=== PATIENT | female | born 1990 | race Caucasian/White ===

== ENCOUNTER 2017-01-30 22:08 | Emergency (ER) | payer OTHER ==
[~2017-01-30] VITALS: Ht 154.9 cm; Wt 71.7 kg
[2017-01-30 22:24] VITALS: BP 128/64
--- NOTE | 2017-01-30 22:36 | NUR ---
Patient to US via wheelchair per tech.
--- NOTE | 2017-01-30 22:48 | NUR ---
Patient back from [place] via wheelchair per tech.
--- NOTE | 2017-01-30 23:30 | NUR ---
Patient to bed 05.
--- NOTE | 2017-01-30 23:30 | NUR ---
PATIENT PRESENTS TO ED WITH PELVIC PAIN X 1 WEEK . PT STATES SHE IS X 9 WEEKS WITH RIGHT FLANK PAIN WELL 6/10 PAIN . PT SKIN IS PINK/WARM/DRY; AAOX4 WITH EVEN AND STEADY GAIT; LUNGS CLEAR BL; HR EVEN AND REGULAR; PT DENIES ANY FEVER, CP, SOB, OR COUGH AT THIS TIME; PATIENT STATES PAIN OF 6/10 AT THIS TIME; VSS; PATIENT POSITIONED FOR COMFORT; HOB ELEVATED; BEDRAILS UP X2; BED DOWN. ER MD MADE AWARE OF PT STATUS. PT IS 52P3 HX KIDNEY INFECTION AND RUPTURE CYST
--- NOTE | 2017-01-30 23:56 | NUR ---
Dr. Cordero evaluating patient at bedside.
[2017-01-31 00:16] VITALS: BP 122/68
--- NOTE | 2017-01-31 00:16 | NUR ---
Patient discharged with v/s stable. Written and verbal after care instructions given and explained. Patient alert, oriented and verbalized understanding of instructions. Ambulatory with steady gait. All questions addressed prior to discharge. ID band removed. Patient advised to follow up with PMD. Rx of TYLENOL 500MG TAB given. Patient educated on indication of medication including possible reaction and side effects. Opportunity to ask questions provided and answered.
== END 2017-01-31 00:16 | disposition home or self-care (01) ==
LOC: MED 22:08
DX: O20.0 Threatened abortion (principal); Z3A.09 9 weeks gestation of pregnancy
CPT/HCPCS: 76801; 81002; 99284; Q0092

== ENCOUNTER 2017-07-23 09:00 | Observation (INO) | payer OTHER ==
[~2017-07-23] VITALS: Ht 154.9 cm; Wt 88.0 kg
[2017-07-23] MEDS ORDERED: OSC500 PO (09:23)
[2017-07-23] MEDS ORDERED: PREN-380 PO (09:23)
[2017-07-23] MEDS ORDERED: VITA1TAB44 PO (09:23)
[2017-07-23 09:25] VITALS: BP 107/70
[2017-07-23] MEDS ORDERED: TERBUTALINE 1 MG/ML VIAL SUBQ SCH (10:30)
[2017-07-23 10:46] LABS: BILIRUBIN,URINE NEGATIVE (NEGATIVE); BLOOD, URINE NEGATIVE (NEGATIVE); COLOR,URINE YELLOW (YELLOW); PH,URINE 7.5 (5.0-9.0); UGLUCOSE NEGATIVE (NEGATIVE)
[2017-07-23 10:50] LABS: APPEARANCE,URINE SLIGHTLY HAZY (CLEAR); NITRITE, URINE POSITIVE (NEGATIVE)
[2017-07-23] MEDS ORDERED: TERBUTALINE 1 MG/ML VIAL SUBQ ONE (10:53)
[2017-07-23 10:55] LABS: LEUKOCYTE ESTERASE ,URINE TRACE (NEGATIVE)
[2017-07-23 10:58] LABS: RBC,URINE 0-5 (RARE) /HPF (0-5); WBC,URINE 0-5 (RARE) /HPF (0-5)
[2017-07-23 11:46] LABS: BARBITURATE, URINE NEG. ng/ml (NEG <=200); BENZODIAZEPINE, URINE NEG. ng/mL (NEG <=200); CANNABINOID, URINE NEG. ng/mL (NEG <=50); COCAINE, URINE NEG. ng/mL (NEG <=300); OPIATE, URINE NEG. ng/mL (NEG <=2000); PHENCYCLIDINE SCREEN,URINE NEG. ng/mL (NEG <=25)
== END 2017-07-23 13:00 | disposition home or self-care (01) ==
LOC: MLD 09:00
PROVIDERS: ADMIT Obstetrics & Gynecology; ATTEND Obstetrics & Gynecology
DX: O42.913 Preterm premature rupture of membranes, unspecified as to length of time between rupture and onset of labor, third trimester (principal); Z3A.34 34 weeks gestation of pregnancy
CPT/HCPCS: 76805; 80305; 81001; 96372; G0378; J3105; Q0092

== ENCOUNTER 2017-08-24 04:29 | Inpatient (IN) | payer OTHER ==
[~2017-08-24] VITALS: Ht 156.2 cm; Wt 93.4 kg
[~2017-08-24 04:29] MED LIST: OSC500 PO; PREN-380 PO; VITA1TAB44 PO
[2017-08-24 07:03] LABS: BASOPHILS % (AUTO) 0.3 % (0.0-2.0); EOSINOPHILS # (AUTO) 0.2 K/uL (0-0.4); EOSINOPHILS % (AUTO) 1.3 % (0.0-4.0); HEMATOCRIT 37.9 % (36-48); HEMOGLOBIN 13.1 g/dL (12.0-16.0); LYMPHOCYTES % (AUTO) 15.2 % (20.5-51.1); MEAN CORPUSCULAR HEMOGLOBIN 30 pg (27-31); MEAN CORPUSCULAR HGB CONC 35 g/dL (33-37); MEAN CORPUSCULAR VOLUME 86 fL (80-94); MONOCYTES # (AUTO) 0.8 K/uL (0.8-1.0); MONOCYTES % (AUTO) 6.3 % (1.7-9.3); NEUTROPHILS # (AUTO) 10.4 K/uL (1.8-7.7); NEUTROPHILS % (AUTO) 76.9 % (42.2-75.2); PLATELET COUNT (AUTO) 159 K/uL (140-450); RED CELL DISTRIBUTION WIDTH 12.3 % (11.6-13.7); WHITE BLOOD COUNT (AUTO) 13.4 K/uL (4.8-10.8)
[2017-08-24 07:21] VITALS: BP 115/75
[2017-08-24] MEDS ORDERED: BUPIVACAINE-MPF 0.75% 10 ML VIAL INJ ONE (07:30)
[2017-08-24] MEDS ORDERED: ONDANSETRON 4 MG/2 ML VIAL IVP ONE (07:30)
[2017-08-24] MEDS ORDERED: OXYTOCIN 10 UNITS/ML VIAL ONE ×2 (07:33→15:51)
[2017-08-24] MEDS ORDERED: ceFAZolin 1,000 MG VIAL ONE (07:44)
[2017-08-24] MEDS ORDERED: MORPHINE PRES FREE 10 MG/10 ML AMP IV ONE (07:45)
[2017-08-24] MEDS ORDERED: MIDAZOLAM 2 MG/2 ML VIAL ONE (07:45)
[2017-08-24 07:50] LABS: ALBUMIN 2.6 g/dL (3.4-5.0); ANION GAP 11.7 (8-16); CARBON DIOXIDE 24.2 mmol/L (21-32); CREATININE 0.5 mg/dL (0.6-1.3); POTASSIUM 3.9 mmol/L (3.5-5.1); TOTAL BILIRUBIN 0.3 mg/dL (0.0-1.0)
[2017-08-24 07:57] LABS: APPEARANCE,URINE CLEAR (CLEAR); BILIRUBIN,URINE NEGATIVE (NEGATIVE); BLOOD, URINE NEGATIVE (NEGATIVE); COLOR,URINE YELLOW (YELLOW); LEUKOCYTE ESTERASE ,URINE NEGATIVE (NEGATIVE); NITRITE, URINE NEGATIVE (NEGATIVE); PH,URINE 6.5 (5.0-9.0); UGLUCOSE NEGATIVE (NEGATIVE)
[2017-08-24 07:59] LABS: BARBITURATE, URINE NEG. ng/ml (NEG <=200); BENZODIAZEPINE, URINE NEG. ng/mL (NEG <=200); CANNABINOID, URINE NEG. ng/mL (NEG <=50); COCAINE, URINE NEG. ng/mL (NEG <=300); OPIATE, URINE NEG. ng/mL (NEG <=2000); PHENCYCLIDINE SCREEN,URINE NEG. ng/mL (NEG <=25)
[2017-08-24] MEDS ORDERED: NALBUPHINE 10 MG/ML AMP IVP PRN (08:05)
[2017-08-24] MEDS ORDERED: diphenhydrAMINE 50 MG/ML VIAL IVP PRN ×2 (08:05)
[2017-08-24] MEDS ORDERED: NALOXONE 0.4 MG/ML VIAL IVP PRN ×3 (08:05)
[2017-08-24] MEDS ORDERED: HYDROmorphone 1 MG/ML AMP IVP PRN (08:05)
[2017-08-24] MEDS ORDERED: ONDANSETRON 4 MG/2 ML VIAL IVP PRN ×2 (08:05)
[2017-08-24] MEDS ORDERED: MEPERIDINE 25 MG/ML SYR IVP PRN (08:05)
[2017-08-24] MEDS ORDERED: OXYTOCIN 20 UNITS/LR PREMIX 1,000 ML IV ONE (08:54)
[2017-08-24] MEDS ORDERED: METHYLERGONOVINE 0.2 MG/ML AMP IM PRN (10:00)
[2017-08-24] MEDS ORDERED: OXYTOCIN 10 UNITS/ML VIAL IM PRN (10:00)
[2017-08-24] MEDS ORDERED: SODIUM PHOSPHATE 118 ML ENEM RC PRN (10:00)
[2017-08-24] MEDS ORDERED: MEASLES, MUMPS, AND RUBELLA 1 VIAL SQVAC PRN (10:00)
[2017-08-24] MEDS ORDERED: BENZOCAINE/MENTHOL 20%-0.5% 60 GM CAN TP PRN (10:00)
[2017-08-24] MEDS ORDERED: METHYLERGONOVINE 0.2 MG TAB PO PRN (10:00)
--- NOTE | 2017-08-24 10:02 | NUR ---
PATIENT HAS BEEN SCREENED AND CATEGORIZED LOW NUTRITION RISK. PATIENT WILL BE SEEN WITHIN 7 DAYS OF ADMISSION. 08/30/[address]
[2017-08-24] MEDS ORDERED: KETOROLAC 30 MG/ML VIAL IM/IVP SCH (12:00)
[2017-08-24] MEDS ORDERED: CALCIUM POLYCARBOPHIL 625 MG TAB PO SCH (13:00)
[2017-08-24] MEDS: OXYTOCIN 20 UNITS in LACTATED RINGERS 1,000 ML IV SCH (15:54)
[2017-08-24] MEDS ORDERED: BISACODYL 5 MG TABEC PO SCH (21:00)
[2017-08-24] MEDS ORDERED: SENNA 8.6 MG TAB PO SCH (21:00)
[2017-08-25] MEDS: OXYTOCIN 20 UNITS in LACTATED RINGERS 1,000 ML IV SCH (01:32)
[2017-08-25] MEDS ORDERED: OXYTOCIN 20 UNITS/LR PREMIX 1,000 ML IV ONE (01:35)
[2017-08-25] MEDS ORDERED: TEMAZEPAM 15 MG CAP PO PRN (02:00)
[2017-08-25] MEDS ORDERED: oxyCODONE/APAP 5/325 MG 1 TAB TAB PO PRN (02:00)
[2017-08-25 06:21] LABS: BASOPHILS % (AUTO) 0.3 % (0.0-2.0); EOSINOPHILS # (AUTO) 0.1 K/uL (0-0.4); HEMATOCRIT 34.4 % (36-48); HEMOGLOBIN 11.8 g/dL (12.0-16.0); LYMPHOCYTES # (AUTO) 1.8 K/uL (2.5-16.5); LYMPHOCYTES % (AUTO) 12.1 % (20.5-51.1); MEAN CORPUSCULAR HEMOGLOBIN 30 pg (27-31); MEAN CORPUSCULAR HGB CONC 34 g/dL (33-37); MEAN CORPUSCULAR VOLUME 87 fL (80-94); MONOCYTES # (AUTO) 1.2 K/uL (0.8-1.0); MONOCYTES % (AUTO) 7.8 % (1.7-9.3); NEUTROPHILS # (AUTO) 11.8 K/uL (1.8-7.7); NEUTROPHILS % (AUTO) 78.8 % (42.2-75.2); PLATELET COUNT (AUTO) 163 K/uL (140-450); RED BLOOD CELL COUNT(AUTO) 3.98 MIL/uL (4.20-5.40); RED CELL DISTRIBUTION WIDTH 12.4 % (11.6-13.7); WHITE BLOOD COUNT (AUTO) 14.9 K/uL (4.8-10.8)
[2017-08-25 09:28] LABS: HEPATITIS B SURFACE ANTIGEN Negative (Negative)
[2017-08-25] MEDS: oxyCODONE/APAP 5/325 MG 1 TAB TAB PO PRN (12:09)
[2017-08-25 17:10] LABS: RAPID PLASMA REAGIN NON-REACTIVE (Non Reactiv)
[2017-08-26] MEDS: oxyCODONE/APAP 5/325 MG 1 TAB TAB PO PRN (12:54)
== END 2017-08-26 15:23 | disposition home or self-care (01) | DRG 540 ==
LOC: MLD 04:29 → MFCC 07:30
PROVIDERS: ADMIT Obstetrics & Gynecology; ATTEND Obstetrics & Gynecology
PROC: 10D00Z1 Extraction of Products of Conception, Low, Open Approach (ICD-10-PCS; principal; 2017-08-24 08:30)
DX: O99.824 Streptococcus B carrier state complicating childbirth (principal); E66.9 Obesity, unspecified; J45.909 Unspecified asthma, uncomplicated; O34.219 Maternal care for unspecified type scar from previous cesarean delivery; O99.52 Diseases of the respiratory system complicating childbirth; O99.214 Obesity complicating childbirth; Z3A.39 39 weeks gestation of pregnancy; Z37.0 Single live birth; Z68.38 Body mass index [BMI] 38.0-38.9, adult
CPT/HCPCS: 36415; 80053; 80305; 81003; 85025; 86592; 86762; 86886; 86900; 86901; 87340; J0690; J1200; J1885; J2250; J2270; J2405; J2590; J3490; J7120